=== PATIENT | male | born 1980 | race Caucasian/White ===

== ENCOUNTER 2021-09-12 15:36 | Outpatient (REF) | payer OTHER, SELFPAY | END 2021-09-12 15:37 | disposition home or self-care (01) | LOC: HO.LAB 15:36 | PROVIDERS: Visit Provider Internal Medicine | DX: Z20.822 Contact with and (suspected) exposure to COVID-19 (principal) | CPT/HCPCS: C9803; U0003; U0005 ==

== ENCOUNTER 2022-09-08 15:37 | Emergency (ER) | payer SELFPAY ==
--- NOTE | ~2022-09-08 | CT_ITS ---
EXAMINATION: CT ABDOMEN AND PELVIS WITHOUT CONTRAST CLINICAL INFORMATION: Diffuse abdominal pain for one week COMPARISON: None TECHNIQUE: Multidetector volumetric imaging was performed from the superior aspect of the liver through the pubic symphysis. Sagittal and coronal reformatted images were obtained on the technologist's workstation. This CT examination was performed using dose optimization techniques as appropriate, variously including the following: *Automated exposure control *Adjustment of mA and/or kV according to patient size (this includes techniques or standardized protocols for targeted exams where dose is matched to indication/reason for exam; i.e. extremities or head) *Use of iterative reconstruction technique DLP: 424 mGy-cm FINDINGS: LUNG BASES: The visualized lung bases are unremarkable. LIVER, GALLBLADDER, AND BILIARY TREE: The liver is normal in size, shape, and attenuation. No focal hepatic lesion or biliary ductal dilatation is present. The gallbladder is unremarkable with no evidence of radiopaque gallstones, gallbladder wall thickening, or obvious pericholecystic inflammatory changes. PANCREAS: Unremarkable. SPLEEN: Unremarkable. ADRENAL GLANDS: Unremarkable. KIDNEYS AND URETERS: The kidneys are normal in size, shape, and attenuation. No hydronephrosis, hydroureter, or calculi seen. No perinephric stranding. BLADDER: Unremarkable. GASTROINTESTINAL TRACT: The small and large bowel are unremarkable. The appendix is unremarkable. ABDOMINAL WALL: No significant hernia is appreciated. LYMPH NODES: Normal. VASCULAR: Unremarkable. PELVIC VISCERA: Unremarkable. OSSEOUS STRUCTURES: No acute fracture or suspicious osseous lesion. CT/CT abdomen pelvis wo IV con IMPRESSION: No acute intra-abdominal process identified.
[2022-09-08 16:02] VITALS: BP 144/81; PULSE 72; RESP 18; TEMP 36.8; O2SAT 96; BMI 24.1
--- NOTE | 2022-09-08 16:03 | ED_ITS ---
HPI - Abdominal Pain General Chief Complaint: Abdominal Pain <Diana Marcum NP - Last Filed: 09/08/22 16:05> Stated Complaint: Abdominal pain <Diana Marcum NP - Last Filed: 09/08/22 16:05> Time Seen by Provider: 09/08/22 16:08 <Diana Marcum NP - Last Filed: 09/08/22 16:05> Source: patient and family <SAPNA Urbina - Last Filed: 09/08/22 18:53> Mode of arrival: ambulatory <SAPNA Urbina - Last Filed: 09/08/22 18:53> Limitations: no limitations <SAPNA Urbina Last Filed: 09/08/22 18:53> History of Present Illness HPI narrative: 41yoM c No Sig PMHx of PSHx is presenting to the ER c c/o right lower quadrant abdominal pain that has now radiated to the rest of the abdomen/diffusely that has been present for approximately 1 week. He denies any other symptoms related to this such as fevers, dizziness, headaches, neck pain/stiffness, nasal contrast/rhinorrhea, sore throat, chest pain or shortness of breath, flank pain, back pain, dysuria, hematuria, black or bloody stools, diarrhea constipation, recent travel or sick contacts or rashes recent injury or trauma or any other symptoms complaints or concerns at this time. <SAPNA Urbina - Last Filed: 09/08/22 18:53> MD elicited complaint: abdominal pain <SAPNA Urbina - Last Filed: 09/08/22 18:53> Onset (ago): week(s) (1) <SAPNA Urbina Last Filed: 09/08/22 18:53> Pain Consistency: constant <SAPNA Urbina Last Filed: 09/08/22 18:53> Location: RLQ <SAPNA Urbina Last Filed: 09/08/22 18:53> Severity: mild <SAPNA Urbina Last Filed: 09/08/22 18:53> Quality: aching <SAPNA Urbina Last Filed: 09/08/22 18:53> Radiation: other (Diffusely to the entire abdomen) <SAPNA Urbina - Last Filed: 09/08/22 18:53> Exacerbating factors: nothing <SAPNA Urbina - Last Filed: 09/08/22 18:53> Relieving factors: nothing <SAPNA Urbina - Last Filed: 09/08/22 18:53> Associated symptoms: denies other symptoms <SAPNA Urbina - Last Filed: 09/08/22 18:53> Related Data Allergies/Adverse Reactions: Allergies Allergy/AdvReac Type Severity Reaction Status Date / Time No Known Allergies Allergy Verified 09/08/22 16:02 [No Known Allergies*] <Diaan Marcum NP - Last Filed: 09/08/22 16:05> Review of Systems Review of Systems Constitutional : No Fever, No Chills, No Night Sweats, No Fatigue, No Malaise Cardiovascular : No Chest Pain, No SOB Respiratory : No Cough, No Sputum, No Wheezing, No Dyspnea Gastrointestinal : No Nausea, No Vomiting, No Diarrhea, + abdominal Pain, No Hematochezia, No Melena Genitourinary : No irregular bleeding, No Dysuria, No Urinary Frequency, No Hematuria,No Urinary Incontinence, No Urgency, No Flank Pain Musculoskeletal : No joint pain, No Myalgias, No Joint Swelling Skin : No Skin Lesions, No rash Neuro : No Weakness, No Numbness, No Paresthesias, No Loss of Consciousness, No Dizziness, No Headache Heme/Lymph: No Lymphadenopathy Endocrine : No Temperature Intolerance <SAPNA Urbina Last Filed: 09/08/22 18:53> Yes all other systems are reviewed and are negative <SAPNA Urbina - Last Filed: 09/08/22 18:53> [facility] Past Medical History Attestation statement: The following information was validated with the patient. <SAPNA Urbina Last Filed: 09/08/22 18:53> Source: old records reviewed, obtained from family and nursing notes reviewed <SAPNA Urbina Last Filed: 09/08/22 18:53> Social History Social History: Social History Advance Directives: No Advance Directives Information Provided: No <Diana Marcum NP - Last Filed: 09/08/22 16:05> Physical Exam ED Vital Signs: Vital Signs - 24 hr 09/08/22 16:02 09/08/22 19:18 09/08/22 19:55 Temperature 98.3 F 102.3 F H 98.3 F Pulse Rate 72 Respiratory Rate 18 Blood Pressure 144/81 H Pulse Oximetry 96 Oxygen Delivery Method Room Air BMI result Body Mass Index 24.1 <Diana Marcum NP - Last Filed: 09/08/22 16:05> Vital Signs - 24 hr 09/08/22 16:02 09/08/22 19:18 09/08/22 19:55 Temperature 98.3 F 102.3 F H 98.3 F Pulse Rate 72 Respiratory Rate 18 Blood Pressure 144/81 H Pulse Oximetry 96 Oxygen Delivery Method Room Air BMI result Body Mass Index 24.1 Vital signs have been reviewed and all within normal limits <SAPNA Urbina - Last Filed: 09/08/22 18:53> Vital Signs - 24 hr 09/08/22 16:02 09/08/22 19:18 09/08/22 19:55 Temperature 98.3 F 102.3 F H 98.3 F Pulse Rate 72 Respiratory Rate 18 Blood Pressure 144/81 H Pulse Oximetry 96 Oxygen Delivery Method Room Air BMI result Body Mass Index 24.1 <Marcia Morales NP - Last Filed: 09/08/22 22:51> Appearance: Alert. Oriented X3. No acute distress. Head: Normal external exam. Normocephalic. Eyes: PERRLA. EOMI. Conjunctiva and sclera normal. Eyelids normal. ENT: Pharynx normal. Uvula midline. Moist mucous membranes. No trismus noted. No drooling noted. No muffled voice noted. Neck: Normal inspection. Neck supple. FROM. No adenopathy. No meningeal signs. CVS: Normal heart rate and rhythm. Heart sound normal. No murmurs noted. Pulses normal throughout. Respiratory: No respiratory distress. Painless inspiration. Breath sounds normal. No wheezes/rales/rhonchi noted. Chest nontender. No accessory muscle usage noted or decreased air movement noted. Abdomen: Soft and point tenderness to the right lower quadrant with guarding and diffusely tender throughout the entire abdomen. Nondistended. No rigidity. Bowel sounds normal in all 4 quadrants. No distention noted. No organomegaly noted. No visible injury noted. No rebound tenderness. Negative Rovsing sign. Negative obturator's sign. Negative psoas sign. Negative Key sign. Back: No CVA tenderness. Full range of motion noted. Skin: Skin warm and dry. Normal skin color. Normal skin turgor. No rashes/lesions/lacerations noted. Extremities: Extremities exhibit normal range of motion. Extremities nontender. Neuro: Oriented X 3. No motor deficit. No sensory deficit. Reflexes normal. Normal steady gait. CN's II-XII intact bilaterally? <SAPNA Urbina - Last Filed: 09/08/22 18:53> Course Course Course Narrative: This is rapid medical exam. Deferred additional HPI, ROS, PE to primary provider. 41 yo male here with mid/right sided abdominal pain x 1 week with no other symptoms. Will check labs, UA. VSS. <Diana Marcum NP - Last Filed: 09/08/22 16:05> Reevaluation(s) Reevaluation #1: 41yoM c No Sig PMHx of PSHx is presenting to the ER c c/o right lower quadrant abdominal pain that has now radiated to the rest of the abdomen/diffusely that has been present for approximately 1 week. Awaiting labs are ordered in triage. Will obtain a CT scan abdomen pelvis IV contrast re-evaluate. <SAPNA Urbina - Last Filed: 09/08/22 18:53> 41yoM c No Sig PMHx of PSHx is presenting to the ER c c/o right lower quadrant abdominal pain that has now radiated to the rest of the abdomen/diffusely that has been present for approximately 1 week. Awaiting labs are ordered in triage. Will obtain a CT scan abdomen pelvis IV contrast re-evaluate. 19:44 CT scan of abdomen pelvis is negative for acute findings requiring em ergent intervention. COVID influenza RSV pending. Patient would like to be discharged home. I will call him with his results. Patient verbalized understanding of and agrees to plan of care discharge home. Verbalized understanding of signs and symptoms indicating need for emergent intervention. He does understand that this could be early signs of appendicitis, and knows that if this worsens that he should return to the emergency department. 22:00 COVID influenza RSV negative. I did call the patient and update him. <Marcia Morales NP - Last Filed: 09/08/22 22:51> Time: 16:11 <SAPNA Urbina - Last Filed: 09/08/22 18:53> Reevaluation #2: Labs obtained and reviewed - BUN 18. Otherwise all other labs are within normal limits Awaiting CT scan abdomen pelvis without IV contrast at this time. <SAPNA Urbina - Last Filed: 09/08/22 18:53> Time: 16:49 <SAPNA Urbina - Last Filed: 09/08/22 18:53> Reevaluation #3: Sign-out to RHONDA Kennedy pending above <SAPNA Urbina - Last Filed: 09/08/22 18:53> Time: 18:52 <SAPNA Urbina - Last Filed: 09/08/22 18:53> Medications Administered Discontinued Medications Generic Name Dose Route Start Last Admin Trade Name Freq PRN Reason Stop Dose Admin Acetaminophen 650 mg 09/08/22 19:45 09/08/22 19:57 Acetaminophen 325 Mg Tablet PO 09/08/22 19:46 Not Given ONCE ONE <Diana Marcum NP - Last Filed: 09/08/22 16:05> Medications Administered Discontinued Medications Generic Name Dose Route Start Last Admin Trade Name Freq PRN Reason Stop Dose Admin Acetaminophen 650 mg 09/08/22 19:45 09/08/22 19:57 Acetaminophen 325 Mg Tablet PO 09/08/22 19:46 Not Given ONCE ONE <SAPNA Urbina - Last Filed: 09/08/22 18:53> Medications Administered Discontinued Medications Generic Name Dose Route Start Last Admin Trade Name Freq PRN Reason Stop Dose Admin Acetaminophen 650 mg 09/08/22 19:45 09/08/22 19:57 Acetaminophen 325 Mg Tablet PO 09/08/22 19:46 Not Given ONCE ONE <Marcia Morales NP - Last Filed: 09/08/22 22:51> MDM - Abdominal Pain Differential Diagnosis Differential diagnosis: Likely abdominal pain, acute appendicitis, calculus of kidney, cons tipation and gastritis <Marcia Morales NP - Last Filed: 09/08/22 22:51> Differential diagnosis narrative:: Viral syndrome <Marcia Morales NP - Last Filed: 09/08/22 22:51> Medical Records Attestation: I reviewed the patient's medical records. <SAPNA Urbina - Last Filed: 09/08/22 18:53> I reviewed the patient's medical records. <Marcia Morales NP - Last Filed: 09/08/22 22:51> Lab Data Attestation: I reviewed the patient's lab results. <SAPNA Urbina - Last Filed: 09/08/22 18:53> I reviewed the patient's lab results. <Marcia Morales NP - Last Filed: 09/08/22 22:51> Result diagrams: : 09/08/22 16:21 09/08/22 16:21 <Diana Marcum NP - Last Filed: 09/08/22 16:05> Labs: Lab Results 09/08/22 09/08/22 09/08/22 Range/Units 16:21 16:21 16:21 WBC 8.0 (4.8-10.8) X10*3/uL RBC 4.85 (4.60-5.80) X10*6/uL Hgb 14.8 (14.0-18.0) g/dl Hct 43.0 (42.0-52.0) % MCV 88.7 (80.0-98.0) fL MCH 30.5 (27.0-33.0) pg MCHC 34.4 (31.0-36.0) g/dl RDW 12.4 (11.0-16.0) % Plt Count 309 (160-400) X10*3/uL MPV 10.5 (9.4-12.4) fL Immature Gran % (Auto) 0.4 (0.0-0.4) % Neut % (Auto) 60.5 (45-73) % Lymph % (Auto) 23.5 (20-40) % [place] % (Auto) 8.8 (2-11) % Eos % (Auto) 6.3 H (0-4) % Baso % (Auto) 0.5 (0-2) % Lymph # (Auto) 1.9 (1.2-4.9) X10*3/uL [place] # (Auto) 0.7 (0.1-1.2) X10*3/uL Eos # (Auto) 0.5 H (0.0-0.4) X10*3/uL Baso # (Auto) 0.0 (0.0-0.2) X10*3/uL Abs Immat Gran (auto) 0.03 (0.00-0.03) X10*3/uL Absolute Neuts (auto) 4.8 (2.0-8.3) x10*3/uL Absolute Nucleated RBC 0.000 (0.0-0.012) X10*3/uL Nucleated RBC % (auto) 0.0 (0.0-0.2) /100WBC PT 10.7 (10.0-13.1) SEC INR 0.9 (0.9-1.1) Sodium 137 (135-145) mmol/L Potassium 4.0 (3.3-5.1) mmol/L Chloride 103 (96-108) mmol/L Carbon Dioxide 25 (22-29) mmol/L Anion Gap 13 (12-20) BUN 18 H (9-16) mg/dL Creatinine 1.08 (0.5-1.4) mg/dL Estim Creat Clear Calc 82.4 Estimated GFR > 60 Random Glucose 90 (60-115) mg/dL Calcium 9.6 (8.4-10.2) mg/dL Magnesium (1.6-2.6) mg/dL Total Bilirubin 0.3 (0.0-1.0) mg/dL Direct Bilirubin < 0.2 (0.0-0.5) mg/dL AST 20 (5-37) U/L ALT 22 (0-40) U/L Alkaline Phosphatase 86 (39-117) U/L Total Protein 7.4 (6.5-8.0) g/dL Albumin 4.2 (3.5-5.0) g/dL Lipase (8-78) U/L Urine Color Urine Appearance Urine pH (5.0-9.0) Ur Specific [place] (1.005-1.025) Urine Protein (Neg-Trace) mg/dL Urine Glucose (UA) (Negative) mg/dL Urine Ketones (Negative) mg/dL Urine Blood (Negative) Urine Nitrite (Negative) Ur Leukocyte Esterase (Negative) Influenza Type A (PCR) (Negative) Influenza Type B (PCR) (Negative) RSV RNA Qual (PCR) (Negative) SARS-CoV-2 RNA (RT-PCR) (Negative) 09/08/22 09/08/22 09/08/22 Range/Units 16:21 19:33 20:30 WBC (4.8-10.8) X10*3/uL RBC (4.60-5.80) X10*6/uL Hgb (14.0-18.0) g/dl Hct (42.0-52.0) % MCV (80.0-98.0) fL MCH (27.0-33.0) pg MCHC (31.0-36.0) g/dl RDW (11.0-16.0) % Plt Count (160-400) X10*3/uL MPV (9.4-12.4) fL Immature Gran % (Auto) (0.0-0.4) % Neut % (Auto) (45-73) % Lymph % (Auto) (20-40) % [place] % (Auto) (2-11) % Eos % (Auto) (0-4) % Baso % (Auto) (0-2) % Lymph # (Auto) (1.2-4.9) X10*3/uL [place] # (Auto) (0.1-1.2) X10*3/uL Eos # (Auto) (0.0-0.4) X10*3/uL Baso # (Auto) (0.0-0.2) X10*3/uL Abs Immat Gran (auto) (0.00-0.03) X10*3/uL Absolute Neuts (auto) (2.0-8.3) x10*3/uL Absolute Nucleated RBC (0.0-0.012) X10*3/uL Nucleated RBC % (auto) (0.0-0.2) /100WBC PT (10.0-13.1) SEC INR (0.9-1.1) Sodium (135-145) mmol/L Potassium (3.3-5.1) mmol/L Chloride (96-108) mmol/L Carbon Dioxide (22-29) mmol/L Anion Gap (12-20) BUN (9-16) mg/dL Creatinine (0.5-1.4) mg/dL Estim Creat Clear Calc Estimated GFR Random Glucose (60-115) mg/dL Calcium (8.4-10.2) mg/dL Magnesium 1.9 (1.6-2.6) mg/dL Total Bilirubin (0.0-1.0) mg/dL Direct Bilirubin (0.0-0.5) mg/dL AST (5-37) U/L ALT (0-40) U/L Alkaline Phosphatase (39-117) U/L Total Protein (6.5-8.0) g/dL Albumin (3.5-5.0) g/dL Lipase 24 (8-78) U/L Urine Color Yellow Urine Appearance Clear Urine pH 6.5 (5.0-9.0) Ur Specific [place] >= 1.030 H (1.005-1.025) Urine Protein Trace (Neg-Trace) mg/dL Urine Glucose (UA) Negative (Negative) mg/dL Urine Ketones Trace (Negative) mg/dL Urine Blood Negative (Negative) Urine Nitrite Negative (Negative) Ur Leukocyte Esterase Negative (Negative) Influenza Type A (PCR) NEGATIVE (Negative) Influenza Type B (PCR) NEGATIVE (Negative) RSV RNA Qual (PCR) NEGATIVE (Negative) SARS-CoV-2 RNA (RT-PCR) NEGATIVE (Negative) <Diana Marcum, RHONDA - Last Filed: 09/08/22 16:05> Lab Results 09/08/22 09/08/22 09/08/22 Range/Units 16:21 16:21 16:21 WBC 8.0 (4.8-10.8) X10*3/uL RBC 4.85 (4.60-5.80) X10*6/uL Hgb 14.8 (14.0-18.0) g/dl Hct 43.0 (42.0-52.0) % MCV 88.7 (80.0-98.0) fL MCH 30.5 (27.0-33.0) pg MCHC 34.4 (31.0-36.0) g/dl RDW 12.4 (11.0-16.0) % Plt Count 309 (160-400) X10*3/uL MPV 10.5 (9.4-12.4) fL Immature Gran % (Auto) 0.4 (0.0-0.4) % Neut % (Auto) 60.5 (45-73) % Lymph % (Auto) 23.5 (20-40) % [place] % (Auto) 8.8 (2-11) % Eos % (Auto) 6.3 H (0-4) % Baso % (Auto) 0.5 (0-2) % Lymph # (Auto) 1.9 (1.2-4.9) X10*3/uL [place] # (Auto) 0.7 (0.1-1.2) X10*3/uL Eos # (Auto) 0.5 H (0.0-0.4) X10*3/uL Baso # (Auto) 0.0 (0.0-0.2) X10*3/uL Abs Immat Gran (auto) 0.03 (0.00-0.03) X10*3/uL Absolute Neuts (auto) 4.8 (2.0-8.3) x10*3/uL Absolute Nucleated RBC 0.000 (0.0-0.012) X10*3/uL Nucleated RBC % (auto) 0.0 (0.0-0.2) /100WBC PT 10.7 (10.0-13.1) SEC INR 0.9 (0.9-1.1) Sodium 137 (135-145) mmol/L Potassium 4.0 (3.3-5.1) mmol/L Chloride 103 (96-108) mmol/L Carbon Dioxide 25 (22-29) mmol/L Anion Gap 13 (12-20) BUN 18 H (9-16) mg/dL Creatinine 1.08 (0.5-1.4) mg/dL Estim Creat Clear Calc 82.4 Estimated GFR > 60 Random Glucose 90 (60-115) mg/dL Calcium 9.6 (8.4-10.2) mg/dL Magnesium (1.6-2.6) mg/dL Total Bilirubin 0.3 (0.0-1.0) mg/dL Direct Bilirubin < 0.2 (0.0-0.5) mg/dL AST 20 (5-37) U/L ALT 22 (0-40) U/L Alkaline Phosphatase 86 (39-117) U/L Total Protein 7.4 (6.5-8.0) g/dL Albumin 4.2 (3.5-5.0) g/dL Lipase (8-78) U/L Urine Color Urine Appearance Urine pH (5.0-9.0) Ur Specific [place] (1.005-1.025) Urine Protein (Neg-Trace) mg/dL Urine Glucose (UA) (Negative) mg/dL Urine Ketones (Negative) mg/dL Urine Blood (Negative) Urine Nitrite (Negative) Ur Leukocyte Esterase (Negative) Influenza Type A (PCR) (Negative) Influenza Type B (PCR) (Negative) RSV RNA Qual (PCR) (Negative) SARS-CoV-2 RNA (RT-PCR) (Negative) 09/08/22 09/08/22 09/08/22 Range/Units 16:21 19:33 20:30 WBC (4.8-10.8) X10*3/uL RBC (4.60-5.80) X10*6/uL Hgb (14.0-18.0) g/dl Hct (42.0-52.0) % MCV (80.0-98.0) fL MCH (27.0-33.0) pg MCHC (31.0-36.0) g/dl RDW (11.0-16.0) % Plt Count (160-400) X10*3/uL MPV (9.4-12.4) fL Immature Gran % (Auto) (0.0-0.4) % Neut % (Auto) (45-73) % Lymph % (Auto) (20-40) % [place] % (Auto) (2-11) % Eos % (Auto) (0-4) % Baso % (Auto) (0-2) % Lymph # (Auto) (1.2-4.9) X10*3/uL [place] # (Auto) (0.1-1.2) X10*3/uL Eos # (Auto) (0.0-0.4) X10*3/uL Baso # (Auto) (0.0-0.2) X10*3/uL Abs Immat Gran (auto) (0.00-0.03) X10*3/uL Absolute Neuts (auto) (2.0-8.3) x10*3/uL Absolute Nucleated RBC (0.0-0.012) X10*3/uL Nucleated RBC % (auto) (0.0-0.2) /100WBC PT (10.0-13.1) SEC INR (0.9-1.1) Sodium (135-145) mmol/L Potassium (3.3-5.1) mmol/L Chloride (96-108) mmol/L Carbon Dioxide (22-29) mmol/L Anion Gap (12-20) BUN (9-16) mg/dL Creatinine (0.5-1.4) mg/dL Estim Creat Clear Calc Estimated GFR Random Glucose (60-115) mg/dL Calcium (8.4-10.2) mg/dL Magnesium 1.9 (1.6-2.6) mg/dL Total Bilirubin (0.0-1.0) mg/dL Direct Bilirubin (0.0-0.5) mg/dL AST (5-37) U/L ALT (0-40) U/L Alkaline Phosphatase (39-117) U/L Total Protein (6.5-8.0) g/dL Albumin (3.5-5.0) g/dL Lipase 24 (8-78) U/L Urine Color Yellow Urine Appearance Clear Urine pH 6.5 (5.0-9.0) Ur Specific [place] >= 1.030 H (1.005-1.025) Urine Protein Trace (Neg-Trace) mg/dL Urine Glucose (UA) Negative (Negative) mg/dL Urine Ketones Trace (Negative) mg/dL Urine Blood Negative (Negative) Urine Nitrite Negative (Negative) Ur Leukocyte Esterase Negative (Negative) Influenza Type A (PCR) NEGATIVE (Negative) Influenza Type B (PCR) NEGATIVE (Negative) RSV RNA Qual (PCR) NEGATIVE (Negative) SARS-CoV-2 RNA (RT-PCR) NEGATIVE (Negative) <SAPNA Urbina - Last Filed: 09/08/22 18:53> Lab Results 09/08/22 09/08/22 09/08/22 Range/Units 16:21 16:21 16:21 WBC 8.0 (4.8-10.8) X10*3/uL RBC 4.85 (4.60-5.80) X10*6/uL Hgb 14.8 (14.0-18.0) g/dl Hct 43.0 (42.0-52.0) % MCV 88.7 (80.0-98.0) fL MCH 30.5 (27.0-33.0) pg MCHC 34.4 (31.0-36.0) g/dl RDW 12.4 (11.0-16.0) % Plt Count 309 (160-400) X10*3/uL MPV 10.5 (9.4-12.4) fL Immature Gran % (Auto) 0.4 (0.0-0.4) % Neut % (Auto) 60.5 (45-73) % Lymph % (Auto) 23.5 (20-40) % [place] % (Auto) 8.8 (2-11) % Eos % (Auto) 6.3 H (0-4) % Baso % (Auto) 0.5 (0-2) % Lymph # (Auto) 1.9 (1.2-4.9) X10*3/uL [place] # (Auto) 0.7 (0.1-1.2) X10*3/uL Eos # (Auto) 0.5 H (0.0-0.4) X10*3/uL Baso # (Auto) 0.0 (0.0-0.2) X10*3/uL Abs Immat Gran (auto) 0.03 (0.00-0.03) X10*3/uL Absolute Neuts (auto) 4.8 (2.0-8.3) x10*3/uL Absolute Nucleated RBC 0.000 (0.0-0.012) X10*3/uL Nucleated RBC % (auto) 0.0 (0.0-0.2) /100WBC PT 10.7 (10.0-13.1) SEC INR 0.9 (0.9-1.1) Sodium 137 (135-145) mmol/L Potassium 4.0 (3.3-5.1) mmol/L Chloride 103 (96-108) mmol/L Carbon Dioxide 25 (22-29) mmol/L Anion Gap 13 (12-20) BUN 18 H (9-16) mg/dL Creatinine 1.08 (0.5-1.4) mg/dL Estim Creat Clear Calc 82.4 Estimated GFR > 60 Random Glucose 90 (60-115) mg/dL Calcium 9.6 (8.4-10.2) mg/dL Magnesium (1.6-2.6) mg/dL Total Bilirubin 0.3 (0.0-1.0) mg/dL Direct Bilirubin < 0.2 (0.0-0.5) mg/dL AST 20 (5-37) U/L ALT 22 (0-40) U/L Alkaline Phosphatase 86 (39-117) U/L Total Protein 7.4 (6.5-8.0) g/dL Albumin 4.2 (3.5-5.0) g/dL Lipase (8-78) U/L Urine Color Urine Appearance Urine pH (5.0-9.0) Ur Specific [place] (1.005-1.025) Urine Protein (Neg-Trace) mg/dL Urine Glucose (UA) (Negative) mg/dL Urine Ketones (Negative) mg/dL Urine Blood (Negative) Urine Nitrite (Negative) Ur Leukocyte Esterase (Negative) Influenza Type A (PCR) (Negative) Influenza Type B (PCR) (Negative) RSV RNA Qual (PCR) (Negative) SARS-CoV-2 RNA (RT-PCR) (Negative) 09/08/22 09/08/22 09/08/22 Range/Units 16:21 19:33 20:30 WBC (4.8-10.8) X10*3/uL RBC (4.60-5.80) X10*6/uL Hgb (14.0-18.0) g/dl Hct (42.0-52.0) % MCV (80.0-98.0) fL MCH (27.0-33.0) pg MCHC (31.0-36.0) g/dl RDW (11.0-16.0) % Plt Count (160-400) X10*3/uL MPV (9.4-12.4) fL Immature Gran % (Auto) (0.0-0.4) % Neut % (Auto) (45-73) % Lymph % (Auto) (20-40) % [place] % (Auto) (2-11) % Eos % (Auto) (0-4) % Baso % (Auto) (0-2) % Lymph # (Auto) (1.2-4.9) X10*3/uL [place] # (Auto) (0.1-1.2) X10*3/uL Eos # (Auto) (0.0-0.4) X10*3/uL Baso # (Auto) (0.0-0.2) X10*3/uL Abs Immat Gran (auto) (0.00-0.03) X10*3/uL Absolute Neuts (auto) (2.0-8.3) x10*3/uL Absolute Nucleated RBC (0.0-0.012) X10*3/uL Nucleated RBC % (auto) (0.0-0.2) /100WBC PT (10.0-13.1) SEC INR (0.9-1.1) Sodium (135-145) mmol/L Potassium (3.3-5.1) mmol/L Chloride (96-108) mmol/L Carbon Dioxide (22-29) mmol/L Anion Gap (12-20) BUN (9-16) mg/dL Creatinine (0.5-1.4) mg/dL Estim Creat Clear Calc Estimated GFR Random Glucose (60-115) mg/dL Calcium (8.4-10.2) mg/dL Magnesium 1.9 (1.6-2.6) mg/dL Total Bilirubin (0.0-1.0) mg/dL Direct Bilirubin (0.0-0.5) mg/dL AST (5-37) U/L ALT (0-40) U/L Alkaline Phosphatase (39-117) U/L Total Protein (6.5-8.0) g/dL Albumin (3.5-5.0) g/dL Lipase 24 (8-78) U/L Urine Color Yellow Urine Appearance Clear Urine pH 6.5 (5.0-9.0) Ur Specific [place] >= 1.030 H (1.005-1.025) Urine Protein Trace (Neg-Trace) mg/dL Urine Glucose (UA) Negative (Negative) mg/dL Urine Ketones Trace (Negative) mg/dL Urine Blood Negative (Negative) Urine Nitrite Negative (Negative) Ur Leukocyte Esterase Negative (Negative) Influenza Type A (PCR) NEGATIVE (Negative) Influenza Type B (PCR) NEGATIVE (Negative) RSV RNA Qual (PCR) NEGATIVE (Negative) SARS-CoV-2 RNA (RT-PCR) NEGATIVE (Negative) <Marcia Morales NP - Last Filed: 09/08/22 22:51> Imaging Data CT scan - abdomen: Attestation: I personally reviewed and interpreted this imaging study as follows: <Marcia Morales NP - Last Filed: 09/08/22 22:51> Radiologist's impression: FINDINGS: LUNG BASES: The visualized lung bases are unremarkable.? LIVER, GALLBLADDER, AND BILIARY TREE: The liver is normal in size, shape, and attenuation. No focal hepatic lesion or biliary ductal dilatation is present. The gallbladder is unremarkable with no evidence of radiopaque gallstones, gallbladder wall thickening, or obvious pericholecystic inflammatory changes.? PANCREAS: Unremarkable.? SPLEEN: Unremarkable.? ADRENAL GLANDS: Unremarkable.? KIDNEYS AND URETERS: The kidneys are normal in size, shape, and attenuation. No hydronephrosis, hydroureter, or calculi seen. No perinephric stranding. ? BLADDER: Unremarkable.? GASTROINTESTINAL TRACT: The small and large bowel are unremarkable. The appendix is unremarkable.? ABDOMINAL WALL: No significant hernia is appreciated.? LYMPH NODES: Normal. VASCULAR: Unremarkable. PELVIC VISCERA: Unremarkable.? OSSEOUS STRUCTURES: No acute fracture or suspicious osseous lesion.? CT/CT abdomen pelvis wo IV con IMPRESSION: No acute intra-abdominal process identified. <Marcia Morales NP - Last Filed: 09/08/22 22:51> Discharge Plan Discharge Clinical Impression: Abdominal pain <Diana Marcum NP - Last Filed: 09/08/22 16:05> Patient Disposition: Home, Self-Care <Diana Marcum NP - Last Filed: 09/08/22 16:05> Instructions: Abdominal Pain (ED) <Diana Marcum NP - Last Filed: 09/08/22 16:05> Additional Instructions: You were evaluated for abdominal pain. CT scan of abdomen and pelvis are negative for acute findings requiring emergent intervention. Your labs are unremarkable. Your COVID influenza RSV test are pending. We will call you with your results Thank you for choosing this emergency department for evaluation. Please follow-up with primary care physician as needed. Return to the emergency department for any new, concerning, or worsening symptoms. <Diana Marcum NP - Last Filed: 09/08/22 16:05> Stand Alone Forms: Work/School Release <Diana Marcum NP - Last Filed: 09/08/22 16:05> Interventions: ED Discharge Assessment Last Done: 09/08/22 21:21 <Diana Marcum NP - Last Filed: 09/08/22 16:05> Discharge Date/Time: 09/08/22 21:22 <Diana Marcum NP - Last Filed: 09/08/22 16:05>
[2022-09-08 16:28] LABS: MANUAL DIFF FLAG NO
[2022-09-08 16:29] LABS: Basophils Percent Auto 0.5 % (0-2); Eosinophils Absolute Auto 0.5 X10*3/uL (0.0-0.4); Eosinophils Percent Auto 6.3 % (0-4); Hemoglobin 14.8 g/dl (14.0-18.0); Imm Gran Abs Auto 0.03 X10*3/uL (0.00-0.03); Imm Gran Pct Auto 0.4 % (0.0-0.4); Lymphocytes Absolute Auto 1.9 X10*3/uL (1.2-4.9); Lymphocytes Percent Auto 23.5 % (20-40); Mean Corpuscular HGB Conc 34.4 g/dl (31.0-36.0); Mean Corpuscular Hemoglobin 30.5 pg (27.0-33.0); Mean Corpuscular Volume 88.7 fL (80.0-98.0); Mean Platelet Volume 10.5 fL (9.4-12.4); Monocytes Absolute Auto 0.7 X10*3/uL (0.1-1.2); Monocytes Percent Auto 8.8 % (2-11); Neutrophils Absolute Auto 4.8 x10*3/uL (2.0-8.3); Neutrophils Percent Auto 60.5 % (45-73); Platelet Count 309 X10*3/uL (160-400); Red Blood Count 4.85 X10*6/uL (4.60-5.80); Red Cell Distribution Width 12.4 % (11.0-16.0)
[2022-09-08 16:42] LABS: INTERNATIONAL NORM RATIO 0.9 (0.9-1.1); Lipase 24 U/L (8-78); Magnesium 1.9 mg/dL (1.6-2.6); Prothrombin Time 10.7 SEC (10.0-13.1)
[2022-09-08 16:53] LABS: Alanine Aminotransferase 22 U/L (0-40); Albumin Level 4.2 g/dL (3.5-5.0); Alkaline Phosphatase 86 U/L (39-117); Anion Gap 13 (12-20); Aspartate Amino Transferase 20 U/L (5-37); Bilirubin Direct < 0.2 mg/dL (0.0-0.5); Bilirubin Total 0.3 mg/dL (0.0-1.0); Blood Urea Nitrogen 18 mg/dL (9-16); Calcium 9.6 mg/dL (8.4-10.2); Carbon Dioxide 25 mmol/L (22-29); Chloride 103 mmol/L (96-108); Creatinine Clr Calc Pharmacy 82.4; Estimated Glomerular Filt Rate > 60; Glucose Random 90 mg/dL (60-115); Sodium 137 mmol/L (135-145); Total Protein 7.4 g/dL (6.5-8.0)
[2022-09-08 19:18] VITALS: TEMP 39.1
[2022-09-08 19:40] LABS: Appearance Urine Clear; Color Urine Yellow; Glucose Urine UA Negative (Negative); Leukocyte Esterase Urine Negative (Negative); Nitrite Urine Negative (Negative); PH 6.5 (5.0-9.0); Specific Gravity - Urine >= 1.030 (1.005-1.025); Urine Blood Negative (Negative); Urine Ketones Trace mg/dL (Negative); Urine Protein Trace mg/dL (Neg-Trace)
[2022-09-08 19:55] VITALS: TEMP 36.8
[2022-09-08 21:22] LABS: Influenza A PCR NEGATIVE (Negative); Influenza B PCR NEGATIVE (Negative); Resp Syncy Virus RNA Qual PCR NEGATIVE (Negative); SARS COV2 PCR INHOUSE NEGATIVE (Negative)
== END 2022-09-08 21:22 | disposition home or self-care (01) ==
PROVIDERS: Nurse Practitioner Family; Physician Assistant Medical; Emergency Provider Emergency Medicine Emergency Medical Services
DX: R10.31 Right lower quadrant pain (principal); Z20.822 Contact with and (suspected) exposure to COVID-19
CPT/HCPCS: 0241U; 36415; 74176; 80048; 80076; 81003; 83690; 83735; 85025; 85610; 99283; 99284

== ENCOUNTER 2022-09-24 17:48 | Emergency (ER) | payer SELFPAY ==
[2022-09-24 17:58] VITALS: PULSE 75; RESP 16; TEMP 36.3; O2SAT 97; BMI 25.0
--- NOTE | 2022-09-24 17:59 | ED_ITS ---
HPI - General Adult General Chief complaint: Medical Clearance Stated complaint: medical clearance Time Seen by Provider: 09/24/22 17:59 Source: patient Mode of arrival: ambulatory Limitations: no limitations History of Present Illness HPI narrative: Patient is a 41-year-old male presents to the emergency department requesting COVID-19 testing. Patient tested positive for COVID-19 at home 09/20/2022, he had symptoms preceding this for approximately 3 days., states that he needs and negative test results and a note so that he may return back to work. Denies any symptoms at this time. Is feeling overall well. Related Data Allergies Allergy/AdvReac Type Severity Reaction Status Date / Time No Known Allergies Allergy Verified 09/08/22 16:02 [No Known Allergies*] Review of Systems Review of Systems: Constitutional: No weight loss, fever, chills, weakness or fatigue. Skin: No rash or itching. Cardiovascular: No chest pain. No palpitations Respiratory: No shortness of breath, cough or sputum production. Gastrointestinal: No anorexia, nausea, vomiting or diarrhea. No abdominal pain Genitourinary: No burning micturition. No urinary frequency or incontinence. Musculoskeletal: No muscle pain, back pain, joint pain or stiffness. Psychiatric: No depression or anxiety. Yes all other systems are reviewed and are negative PMFSH Past Medical History Attestation statement: The following information was validated with the patient. Source: old records reviewed Social History Social History Advance Directives: No Advance Directives Information Provided: No Physical Exam ED Vital Signs: Vital Signs - 24 hr 09/24/22 17:58 Temperature 97.4 F Pulse Rate 75 Respiratory Rate 16 Pulse Oximetry 97 Oxygen Delivery Method Room Air BMI result Body Mass Index 25.0 Appearance: Alert.?Oriented to person, place and time. No acute distress.?Normal affect. Eyes: Pupils equal, round and reactive to light.? ENT: Pharynx normal.?? Neck: Normal inspection.? Neck supple.?? CVS: Heart sounds normal. Normal heart rate and rhythm.? Pulses normal.?? Respiratory: No respiratory distress.? Lung sounds clear to auscultation bilaterally?? Abdomen: Soft and non-tender. Normoactive bowel sounds. Skin: Skin warm and dry.? Normal skin color.? Extremities: No lower extremity edema.? Neuro: Moves all extremities spontaneously. Sensation intact bilaterally. Ambulates with normal steady gait. Course Course Course Narrative: Patient is a 41-year-old male with no reported past medical history presenting to emergency department requesting medical clearance. Tested positive for COVID-19 5 days ago, has had symptoms for approximately 7-8 days. At this time denies any symptoms. He is requesting a return to work note, and he will require and negative testing results. Testing for COVID-19 obtained, and remains po sitive. Discussed CDC guidance, advised he may return to work given he has improvement in symptoms and has been without fever, however he should still continue to wear a mask for 5 days. He will need to discuss return with his employer. Provided with a return note. He is well-appearing, nontoxic, vital signs are stable. No apparent respiratory distress. Stable for discharge. Medical Decision Making Lab Data Labs: Lab Results 09/24/22 Range/Units 18:01 COVID-19 ([facility]) Positive A (Negative) COVID-19 Clin Com See Note Discharge Plan Discharge Clinical Impression: COVID-19 Patient Disposition: Home, Self-Care Instructions: COVID-19 (Coronavirus Disease 2019) (ED) Additional Instructions: Your COVID-19 test today remains positive. As discussed, per CDC guidance you may return to work after 5 days of symptoms or positive testing whichever came first. Since your symptoms have improved and you have been without fever for 24 hours you may return to work after today, but you should continue to wear a mask for the following 5 days. Return to emergency department any new or worsening symptoms or concerns. Contact your primary care provider to arrange for follow-up as needed. Stand Alone Forms: Work/School Release Interventions: ED Discharge Assessment Last Done: 09/24/22 18:36 Discharge Date/Time: 09/24/22 18:37
[2022-09-24 18:15] LABS: COVID-19 Test Positive (Negative); IDNOW Serial# 16C4AD1C
== END 2022-09-24 18:37 | disposition home or self-care (01) ==
PROVIDERS: Nurse Practitioner Family; Emergency Provider Emergency Medicine
DX: U07.1 COVID-19 (principal)
CPT/HCPCS: 87635; 99282; 99283

== ENCOUNTER 2023-09-24 19:49 | Emergency (ER) | payer OTHER, SELFPAY ==
--- NOTE | ~2023-09-24 | XR_ITS ---
EXAMINATION: XR LUMBOSACRAL SPINE CLINICAL INFORMATION: Pain COMPARISON: None available. TECHNIQUE: Three views of the lumbosacral spine. FINDINGS: The vertebral bodies and posterior elements are normal. The disc spaces are preserved and the vertebral alignment is normal. The paraspinal soft tissues are normal. XR/XR lumbar spine 2-3V IMPRESSION: Unremarkable examination.
[2023-09-24 20:21] VITALS: BP 133/92; PULSE 61; RESP 18; TEMP 36.9; O2SAT 97; BMI 24.7
--- NOTE | 2023-09-24 20:24 | ED_ITS ---
HPI - General Adult General Chief complaint: Back Pain/Injury Stated complaint: Back pain/numbness Time Seen by Provider: 09/24/23 22:17 Source: patient Mode of arrival: ambulatory Limitations: no limitations History of Present Illness HPI narrative: Patient with chronic back problems complaining of increased pain lately for last few days [place] also complaining of numbness of the right hand no headache no neck pain no other significant past medical history no urinary complaint Related Data Previous Rx's Medication Instructions Recorded cyclobenzaprine 10 mg tablet 10 mg PO Q8H #20 tabs 09/24/23 tramadol 50 mg tablet 50 mg PO Q6H PRN pain #20 tabs 09/24/23 Allergies Allergy/AdvReac Type Severity Reaction Status Date / Time No Known Allergies Allergy Verified 09/08/22 16:02 [No Known Allergies*] Review of Systems Review of Systems: Yes all other systems are reviewed and are negative [facility] Social History Social History Advance Directives: No Advance Directives Information Provided: No Physical Exam ED Vital Signs: Vital Signs - 24 hr 09/24/23 20:21 09/24/23 22:15 Temperature 98.5 F 98.0 F Pulse Rate 61 60 Respiratory Rate 18 18 Blood Pressure 133/92 H 138/83 Pulse Oximetry 97 98 Oxygen Delivery Method Room Air Room Air BMI result Body Mass Index 24.7 Appearance: Alert. Oriented X3. No acute distress. Eyes: PERRLA, No Nystagmus ENT: Pharynx normal. Oral Mucosa moist Neck: Normal inspection. Neck supple. No midline tenderness CVS: Normal heart rate and rhythm. Pulses normal. Respiratory: No respiratory distress. Equal air entry bilateral, no wheezing/rales/rhonchi Abdomen: Soft and nontender. Bowel sounds are present, no mass palpable, no CVA tenderness Skin: Skin warm and dry. Normal skin color. Normal skin turgor. Extremities: No lower extremity edema. No calf tenderness back: Diffuse left lumbar paraspinal tenderness no focal midline tenderness SLR negative bilaterally patient ambulatory in a steady gait sensation intact in right hand Tinel and Phalen sign negative Neuro: Oriented X 3. No motor deficit. No sensory deficit.No cerebellar signs , cranial nerves II-XII intact Course Course Course Narrative: RME- 42-year-old male presents for evaluation of right lower back pain that started 1 month ago. Unsure if he and injury. Plan for x-ray lumbar spine. No warning signs for cauda equina syndrome Medical Decision Making Medical Decision Making [facility] Narrative: Patient with lower back pain which is chronic x-ray negative likely musculoskeletal discharge patient home on tramadol and Flexeril Lab Data MDM Lab Attestation statement: I reviewed the patient's lab results. Labs: Lab Results 09/24/23 Range/Units 22:40 POC Glucose 92 (60-115) mg/dL Independent Interpretation I performed an independent interpretation of an: Plain X-Ray Radiology Impression Discussion of test interpretation with radiology: I have reviewed the radiologist's reading. Discharge Plan Discharge Clinical Impression: Lower back pain Patient Disposition: Home, Self-Care Instructions: Chronic Back Pain (DC) Additional Instructions: Take pain medication and muscle relaxant as prescribed Avoid lifting heavy objects Follow with PCP if not better Prescriptions: New cyclobenzaprine 10 mg tablet 10 mg PO Q8H Qty: 20 0RF tramadol 50 mg tablet 50 mg PO Q6H PRN (Reason: pain) Qty: 20 0RF
[2023-09-24 22:15] VITALS: BP 138/83; PULSE 60; RESP 18; TEMP 36.7; O2SAT 98
[2023-09-24 22:44] LABS: Glucose, Whole Blood 92 mg/dL (60-115)
[2023-09-24] MEDS: Cyclobenzaprine HCl 10 MG TABLET PO (23:35)
[2023-09-24] MEDS: traMADoL HCL 50 MG TABLET PO (23:35)
== END 2023-09-24 23:47 | disposition home or self-care (01) ==
PROVIDERS: Emergency Provider Internal Medicine
DX: M54.50 Low back pain, unspecified (principal); R20.0 Anesthesia of skin; Z79.899 Other long term (current) drug therapy
CPT/HCPCS: 72100; 82947; 99283